=== PATIENT | female | born 1965 | race Hispanic/Latino ===

== ENCOUNTER 2016-11-27 23:14 | Emergency (ER) | payer OTHER ==
[~2016-11-27] VITALS: Ht 170.2 cm; Wt 108.9 kg
[~2016-11-27 23:14] MED LIST: ALBUTEROL2.5 MG/3 M INH/SOL; FLONASE120 SPRAY/ NASB; PREDNISONE10 M2 PO; PREDNISONE10 MG PO; TESSALON PERLE100 M1 PO; ZITHROMAX250 M2 PO; ZOFRAN ODT4 MG SL
--- NOTE | 2016-11-27 23:30 | ED DYSPNEA/ASTHMA COMPLAINT ---
See Addendum History of Present Illness General Chief Complaint: General Adult Stated Complaint: " SOB,COUGHING, PALPITATIONS, HX OF ASTHMA" Source: patient Exam Limitations: no limitations Vital Signs & Intake/Output Vital Signs & Intake/Output Vital Signs Date Time Temp Pulse Resp B/P Pulse O2 O2 Flow FiO2 Ox Delivery Rate 11/28 0101 Room Air 11/28 0049 94 11/28 0013 99.5 120 18 175/81 95 Room Air Allergies Coded Allergies: NO KNOWN ALLERGIES (11/21/13) Reconcile Medications Albuterol Sulfate (Ventolin Hfa) 90 MCG HFA.AER.AD 2 PUF INH Q4-6 PRN PRN WHEEZE Albuterol Sulfate 1.25 MG/3 ML VIAL.NEB 1 Vial INH/ALISA Q4-6 PRN WHEEZE Albuterol Sulfate 2.5 MG/3 ML VIAL.NEB 1 Vial INH/ALISA Q4P PRN asthma Azithromycin (Zithromax) 250 MG TABLET 1 DP PO AD BRONCHITIS 2 the first day followed by 1 for days 2-5 Benzonatate (Tessalon Perle) 100 MG CAPSULE 1-2 CAP PO TID PRN COUGH Benzonatate (Tessalon Perle) 100 MG CAPSULE 1 CAP PO TID PRN COUGH Fluticasone Propionate (Flonase) 120 SPRAY/BOT SPR 2 SPRAY NASB DAILY SINUSITIS Ondansetron (Zofran Odt) 4 MG TAB.RAPDIS 1 TAB SL Q8 NAUSEA Prednisone 50 MG TABLET 1 TAB PO DAILY ASTHMA Prednisone 10 MG TAB 0 TAB PO DAILY ASTHMA EXACERBATION TAKE 4 PILLS A DAY FOR 3 DAYS THEN TAKE 3 PILLS A DAY FOR 3 DAYS THEN TAKE 2 PILLS A DAY FOR 3 DAYS THEN TAKE 1 PILL A DAY FOR 3 DAYS Prednisone 10 MG TABLET 0 PO DAILY ASTHMA EXACERBATION DAY 1, 2: 6 TABS PO DAILY THEN TAPER DOWN BY 10MG A DAY FOR 5 ADDITIONAL DAYS Triage Nurses Notes Reviewed? yes Onset: Gradual Duration: day(s):, waxing and waning Timing: recent history Severity: moderate Activities at Onset: none Prior Episodes/Possible Cause: occasional episodes Modifying Factors: Improves With: other (w/treatment). Associated Symptoms: cough, weakness, no sputum production HPI: 51-year-old woman history of asthma presents with 1 day history of coughing, wheezing, shortness of breath. She notes that she has no fever chest pain or sputum production. She took one breathing treatment which improved her symptoms slightly. She is otherwise well and has no other concerns. Past History Travel History Traveled to [place] past 21 day No Medical History Any Pertinent Medical History? see below for history Respiratory: asthma Surgical History Surgical History: non-contributory Psychosocial History What is your primary language Ecuadorean Family History Hx Contributory? No Review of Systems Review of Systems Constitutional: Reports: no symptoms. EENTM: Reports: no symptoms. Respiratory: Reports: no symptoms. Cardiovascular: Reports: no symptoms. GI: Reports: no symptoms. Genitourinary: Reports: no symptoms. Musculoskeletal: Reports: no symptoms. Skin: Reports: no symptoms. Neurological/Psychological: Reports: no symptoms. Hematologic/Endocrine: Reports: no symptoms. Immunologic/Allergic: Reports: no symptoms. All Other Systems: Reviewed and Negative Physical Exam Physical Exam General Appearance: well developed/nourished, mild distress Head: atraumatic, normal appearance Eyes: Bilateral: normal appearance. Ears, Nose, Throat: normal pharynx, normal ENT inspection Neck: normal inspection, supple, full range of motion Respiratory: wheezing Cardiovascular: regular rate/rhythm Gastrointestinal: normal bowel sounds, soft, non-tender, no organomegaly Extremities: normal inspection, normal capillary refill Neurologic/Psych: no motor/sensory deficits, awake, alert, oriented x 3 Skin: intact, normal color, warm/dry Core Measures ACS in differential dx? No Severe Sepsis Present: No Septic Shock Present: No Progress Differential Diagnosis: asthma, bronchitis, COPD, pneumonia Plan of Care: Orders Procedure Date/time Status TROPONIN LEVEL 11/27 2321 Complete COMPREHENSIVE METABOLIC PANEL 11/27 2321 Complete CBC WITHOUT DIFFERENTIAL 11/27 2321 Complete EKG 11/27 2316 Active Current Medications Sig/Prashanth Start time Last Medication Dose Stop Time Status Admin Albuterol Sulfate 3 ML ONCE ONE 11/28 229 UNVr (Proventil) 11/28 230 Amoxicillin/ 1,000 MG ONCE ONE 11/28 229 UNVr Clavulanate Potassium 11/28 230 (Augmentin) Laboratory Tests 11/28/16 0056: Anion Gap 10, Estimated GFR > 60, BUN/Creatinine Ratio 25.0, Glucose 108 H, Calcium 9.2, Total Bilirubin 0.9, AST 19, ALT 23, Alkaline Phosphatase 78, Troponin I < 0.01, Total Protein 7.4, Albumin 4.1, Globulin 3.3, Albumin/ Globulin Ratio 1.2, CBC w Diff MAN DIFF ORDERED, RBC 5.12, MCV 84.3, MCH 28.7, RDW 14.8 H, MPV 7.3 L, Gran % 87.2 H, Lymphocytes % 5.5 L, Monocytes % 5.2, Eosinophils % 2.0, Basophils % 0.1, Absolute Granulocytes 11.0 H, Absolute Lymphocytes 0.7 L, Absolute Monocytes 0.7 H, Absolute Eosinophils 0.3, Absolute Basophils 0, Platelet Estimate ADEQUATE, Normocytic RBCs VERIFIED, Normochromic RBCs VERIFIED, PUBS MCHC 34.0 Diagnostic Imaging: Viewed by Me: Radiology Read. Discussed w/RAD: Radiology Read. CXR Impression: left basilar opacity c/w atelectasis vs pneumonia Initial ED EKG: normal axis, normal intervals, normal p-waves, normal QRS complex, normal sinus rhythm, sinus tach Comments: PATIENT: ANDRES CACERES PRESENT AGE: 51 PATIENT ACCOUNT NO: [id number] : 65 LOCATION: [facility] ORDERING PHYSICIAN: MAIDA HESS MD SERVICE DATE: 11/27/16 EXAM TYPE: RAD - XRY-PORTABLE CHEST XRAY EXAMINATION: XR PORTABLE CHEST CLINICAL INFORMATION: Shortness of breath COMPARISON: 09/06/2016 TECHNIQUE: Portable AP view of the chest was obtained. FINDINGS: Cardiac leads overlie the chest. The lungs are well expanded. Increased hazy left basilar opacity. No effusion or edema. No pneumothorax. The cardiomediastinal silhouette is unchanged. No acute osseous abnormality. IMPRESSION: Left basilar opacity may represent atelectasis or pneumonia. DICTATED BY: CARLOTA LOWERY MD DATE/TIME DICTATED:11/28/1646 FINANCE SPECIALIST:VIKAS DATE/TIME TRANSCRIBED:11/28/1646 CONFIDENTIAL, DO NOT COPY WITHOUT APPROPRIATE AUTHORIZATION. <Electronically signed in Other Vendor System> SIGNED BY: CARLOTA LOWERY MD 11/28 0051 Departure Departure Disposition: HOME OR SELF CARE Condition: Stable Clinical Impression Primary Impression: Asthma exacerbation Referrals: ANNA SOSA (PCP/Family) Departure Forms: Customer Survey General Discharge Information Prescriptions: Current Visit Scripts Prednisone 1 TAB PO DAILY #5 TAB Albuterol Sulfate (Ventolin Hfa) 2 PUF INH Q4-6 PRN PRN WHEEZE #1 INHAL Ref 3 Albuterol Sulfate 1 Vial INH/ALISA Q4-6 PRN WHEEZE #1 BOX Ref 2 Benzonatate (Tessalon Perle) 1-2 CAP PO TID PRN COUGH #30 CAP Comments 11/28/16, 2:20am... pt feeling better.... streaky atelectasis consistent with possible early/mild pneumonia... pt safe for discharge. encouraged close follow up. Critical Care Note Critical Care Note Critical Care Time: non-applicable
--- NOTE | 2016-11-28 00:51 | RADIOLOGY REPORT ---
EXAMINATION: XR PORTABLE CHEST CLINICAL INFORMATION: Shortness of breath COMPARISON: 09/06/2016 TECHNIQUE: Portable AP view of the chest was obtained. FINDINGS: Cardiac leads overlie the chest. The lungs are well expanded. Increased hazy left basilar opacity. No effusion or edema. No pneumothorax. The cardiomediastinal silhouette is unchanged. No acute osseous abnormality. IMPRESSION: Left basilar opacity may represent atelectasis or pneumonia.
[2016-11-28 01:19] LABS: ABSOLUTE BASOPHIL COUNT 0 /CUMM (0.0-0.2); ABSOLUTE EOSINOPHIL COUNT 0.3 /CUMM (0.0-0.7); ABSOLUTE LYMPH COUNT 0.7 /CUMM (1.2-3.4); ABSOLUTE MONOCYTE COUNT 0.7 /CUMM (0.10-0.60); BASOPHIL % 0.1 % (0.0-2.0); GRANULOCYTE % 87.2 % (42.2-75.2); HEMATOCRIT 43.2 % (37-47); MEAN CORPUSCULAR HGB 28.7 PG (27.0-31.0); MEAN CORPUSCULAR VOLUME 84.3 FL (81.0-99.0); MEAN PLATELET VOLUME 7.3 FL (7.4-10.4); PLATELET COUNT 239 /CUMM (130-400); RBC DISTRIBUTION WIDTH 14.8 % (11.5-14.5); RED BLOOD CELL CT 5.12 /CUMM (4.20-5.40); WHITE BLOOD CELL COUNT 12.7 /CUMM (4.8-10.8)
[2016-11-28] MEDS ORDERED: TESSALON PERLE100 M1 PO (02:19)
[2016-11-28] MEDS ORDERED: PREDNISONE50 M1 PO (02:19)
[2016-11-28] MEDS ORDERED: VENTOLIN HFA18 GM INH (02:19)
[2016-11-28] MEDS ORDERED: ALBUTEROL1.25 MG/1 INH/SOL (02:19)
[2016-11-28 02:30] VITALS: BP 137/71
== END 2016-11-28 02:43 ==
LOC: ERH 23:14
PROVIDERS: Pediatrics
DX: J45.901 Unspecified asthma with (acute) exacerbation (principal); R05 Cough; R06.2 Wheezing
CPT/HCPCS: 1263; 1395; 93005; 93010